=== PATIENT | male | born 1980 | race African-American/Black ===

== ENCOUNTER 2018-12-03 09:26 | Emergency (ER) | payer SELFPAY ==
[~2018-12-03] VITALS: Ht 190.5 cm; Wt 141.0 kg
[2018-12-03 09:34] VITALS: BP 141/94
[2018-12-03] MEDS ORDERED: FLUORESCEIN SODIUM 1MG/STRIP OP ONE (11:45)
[2018-12-03] MEDS ORDERED: TETRACAINE 0.5% OPHTH DROPS 4ML OP ONE (11:45)
== END 2018-12-03 12:27 | disposition home or self-care (01) ==
LOC: ER 09:26
DX: S05.01XA Injury of conjunctiva and corneal abrasion without foreign body, right eye, initial encounter (principal); F12.10 Cannabis abuse, uncomplicated; W50.4XXA Accidental scratch by another person, initial encounter; Y93.89 Activity, other specified; Y92.89 Other specified places as the place of occurrence of the external cause; Y99.8 Other external cause status
CPT/HCPCS: 99283

== ENCOUNTER 2021-03-29 23:48 | Emergency (ER) | payer MEDICAID ==
[~2021-03-29] VITALS: Ht 188 cm; Wt 123.0 kg
[2021-03-30 00:05] VITALS: BP 163/79
[2021-03-30] MEDS ORDERED: FLUORESCEIN SODIUM 1MG/STRIP LEFTEYE ONE (00:30)
[2021-03-30] MEDS ORDERED: TETRACAINE 0.5% OPHTH DROPS 4ML LEFTEYE ONE (00:30)
[2021-03-30] MEDS ORDERED: TRIMO LEFTEYE (00:45)
== END 2021-03-30 01:04 | disposition home or self-care (01) ==
LOC: ER 23:48
DX: H10.9 Unspecified conjunctivitis (principal); M19.90 Unspecified osteoarthritis, unspecified site
CPT/HCPCS: 99283